=== PATIENT | male | born 1990 | race Caucasian/White ===

== ENCOUNTER 2025-01-22 19:04 | Inpatient (IN) | payer OTHER, SELFPAY ==
[~2025-01-22] VITALS: Ht 185.4 cm; Wt 63.6 kg
[2025-01-22 19:49] LABS: HEMATOCRIT 41.5 % (42.0-52.0); HEMOGLOBIN 14.2 g/dl (13.5-17.5); MEAN CORPUSCULAR HEMOGLOBIN 31.3 pg (27.0-33.0); MEAN CORPUSCULAR HGB CONC 34.2 g/dl (32.0-36.5); MEAN CORPUSCULAR VOLUME 91.6 fl (80.0-96.0); PLATELET COUNT, AUTOMATED 218 10^3/uL (150-450); RED BLOOD COUNT 4.53 10^6/uL (4.30-6.10); WHITE BLOOD COUNT 8.3 10^3/uL (4.0-10.0)
[2025-01-22 20:18] LABS: ETHYL ALCOHOL (ETHANOL) < 0.003 % (0.000-0.010)
[2025-01-22 20:20] LABS: ALBUMIN 4.7 G/DL (3.2-5.2); ALKALINE PHOSPHATASE 50 U/L (40-129); ALT/SGPT 64 U/L (7.0-40); AST/SGOT 135 U/L (<34); BILIRUBIN,DIRECT 0.6 MG/DL (<0.4); BILIRUBIN,TOTAL 1.7 MG/DL (0.3-1.2); BLOOD UREA NITROGEN 13 MG/DL (9-23); CALCIUM LEVEL 9.7 MG/DL (8.5-10.1); CARBON DIOXIDE LEVEL 25 MMOL/L (20-31); CHLORIDE LEVEL 104 MMOL/L (98-107); CREATININE FOR GFR 0.87 MG/DL (0.70-1.30); GLOMERULAR FILTRATION RATE > 90.0 (>60); GLUCOSE, FASTING 83 MG/DL (60-100); POTASSIUM SERUM 3.4 MMOL/L (3.5-5.1); SALICYLATE LEVEL < 3.0 MG/DL (<30); SODIUM LEVEL 141 MMOL/L (136-145); TOTAL PROTEIN 8.3 G/DL (5.7-8.2)
[2025-01-22 23:10] LABS: METHADONE URINE NEGATIVE (NEGATIVE); OPIATES URINE NEGATIVE (NEGATIVE)
[2025-01-22 23:11] LABS: AMPHETAMINES LEVEL URINE NEGATIVE (NEGATIVE); BARBITURATES URINE NEGATIVE (NEGATIVE); BENZODIAZEPINES URINE NEGATIVE (NEGATIVE); COCAINE METABOLITE URINE NEGATIVE (NEGATIVE); PHENCYCLIDINE URINE NEGATIVE (NEGATIVE)
[2025-01-22 23:12] LABS: CANNABINOIDS URINE POSITIVE (NEGATIVE)
[2025-01-23] MEDS ORDERED: ACETAMINOPHEN 325 MG TAB PO PRN (01:45)
[2025-01-23] MEDS ORDERED: MOM 30ML SUSPENSION UDC PO PRN (01:45)
[2025-01-23] MEDS ORDERED: MAALOX 30 ML SUSP *UDC PO PRN (01:45)
[2025-01-23] MEDS ORDERED: IBUPROFEN 400MG TAB PO PRN (01:45)
[2025-01-23 02:35] VITALS: BP 122/79; TEMP 97.4; O2SAT 100
[2025-01-23 06:37] VITALS: BP 137/80; TEMP 97.8; O2SAT 100
[2025-01-23] MEDS ORDERED: HOME MED LIST COMPLETE! XX SCH (07:05)
[2025-01-23] MEDS: OLANZapine 5 MG TAB PO SCH (12:19)
[2025-01-23 16:11] VITALS: BP 139/86; TEMP 97.1; O2SAT 99
[2025-01-24 06:39] VITALS: BP 131/64; TEMP 97.3; O2SAT 98
[2025-01-24 07:46] LABS: HEPATITIS B SURFACE ANTIGEN NEGATIVE (NEGATIVE)
[2025-01-24 08:07] LABS: HEPATITIS B CORE ANTIBODY IGM NEGATIVE (NEGATIVE); HEPATITIS C VIRUS ABY INDEX 0.05 INDEX (<0.8)
[2025-01-24 08:10] LABS: ALBUMIN 3.9 G/DL (3.2-5.2); ALKALINE PHOSPHATASE 43 U/L (40-129); ALT/SGPT 52 U/L (7.0-40); AST/SGOT 58 U/L (<34); BILIRUBIN,DIRECT 0.4 MG/DL (<0.4); BILIRUBIN,TOTAL 1.1 MG/DL (0.3-1.2); BLOOD UREA NITROGEN 10 MG/DL (9-23); CALCIUM LEVEL 9.7 MG/DL (8.5-10.1); CARBON DIOXIDE LEVEL 30 MMOL/L (20-31); CHLORIDE LEVEL 108 MMOL/L (98-107); CREATININE FOR GFR 0.92 MG/DL (0.70-1.30); GLOMERULAR FILTRATION RATE > 90.0 (>60); GLUCOSE, FASTING 93 MG/DL (60-100); POTASSIUM SERUM 4.5 MMOL/L (3.5-5.1); SODIUM LEVEL 144 MMOL/L (136-145); TOTAL PROTEIN 7.2 G/DL (5.7-8.2)
[2025-01-24 15:49] VITALS: BP 132/81; TEMP 97.6; O2SAT 100
[2025-01-25 06:31] VITALS: BP 130/88; TEMP 97.4; O2SAT 97
[2025-01-25 15:17] VITALS: BP 137/69; TEMP 97.8; O2SAT 100
[2025-01-25] MEDS: OLANZapine 10 MG TAB PO SCH (21:05)
[2025-01-26 06:25] LABS: CHOLESTEROL RISK RATIO 2.61 (<5); HDL CHOLESTEROL 51.6 MG/DL (>40); NON-HDL-C 83.4 MG/DL
[2025-01-26 06:40] VITALS: BP 133/87; TEMP 97.1; O2SAT 99
[2025-01-26] MEDS: OLANZapine 5 MG TAB PO SCH (09:04)
[2025-01-26 15:03] VITALS: BP 123/72; TEMP 97.9; O2SAT 99
[2025-01-27 06:39] VITALS: BP 131/74; TEMP 97.7; O2SAT 98
[2025-01-27 14:49] VITALS: BP 124/75; TEMP 97.5; O2SAT 100
[2025-01-28 07:11] VITALS: BP 143/87; TEMP 96.9; O2SAT 98
[2025-01-28 16:24] VITALS: BP 130/84; TEMP 97.1; O2SAT 99
[2025-01-28] MEDS: traZODone 50 MG TAB PO PRN (20:46)
[2025-01-29 06:49] VITALS: BP 133/69; TEMP 97.4; O2SAT 99
[2025-01-29] MEDS ORDERED: OLAN1TAB16 PO (12:22)
[2025-01-29] MEDS ORDERED: OLAN1TAB20 PO (12:22)
[2025-01-29] MEDS ORDERED: TRAZ-252 PO (12:22)
== END 2025-01-29 13:42 | disposition home or self-care (01) | DRG 885 ==
LOC: M ED 19:04 → EDBD 19:04 → M ED INP 01-23 01:45 → M PSY 01-23 02:08
PROVIDERS: ADMIT Student in an Organized Health Care Education/Training Program; ATTEND Internal Medicine
DX: F29 Unspecified psychosis not due to a substance or known physiological condition (principal); F19.159 Other psychoactive substance abuse with psychoactive substance-induced psychotic disorder, unspecified; F17.210 Nicotine dependence, cigarettes, uncomplicated; R74.01 Elevation of levels of liver transaminase levels; Z79.899 Other long term (current) drug therapy; Z91.011 Allergy to milk products; Z62.811 Personal history of psychological abuse in childhood